=== PATIENT | male | born 1935 | race Caucasian/White ===

== ENCOUNTER 2021-11-16 07:18 | Emergency (ER) | payer OTHER, BC ==
[~2021-11-16] VITALS: Ht 177.8 cm; Wt 93.0 kg
--- NOTE | ~2021-11-16 | EMS ---
[facility] [address] [place] [address] EMS Patient Care Report Name: TRACI BOWER Room #: PRE M.R.#: [id number] Admission: Attend Phys: Discharge: Date of : 37 Report #: [id number] THIS REPORT FOR: //name// Report Transmitted: 11/16/2021 07:06 EMS Care Summary [facility] MED-ACT Incident [id number] @ 11/16/2021 06:42 Incident Location [address] [place] [address] Patient TRACI BOWER Male, 86 Years 1935 Patient Address [address] [place] [address] Patient History Hypertension (HTN),Pacemaker/AICD,Hyperlipidemia,Gastro-Esophageal Reflux Disease (GERD),Depression, Patient Allergies No known allergies, Patient Medications Citalopram, Eliquis, Prilosec, Propranolol, Atorvastatin, Chief Complaint syncope/weakness Disposition Transported No Lights/[place] Reason Falls Transported To [facility] Narrative Upon arrival pt was sitting on the stairs, presented w/o distress. Pt stated he had syncope and fall 2 days ago and he was worried about having a syncope [facility] [address] [place] [address] EMS Patient Care Report Name: TRACI BOWER Room #: PRE [facility].[place].#: [id number] Admission: Attend Phys: Discharge: Date of : 37 Report #: [id number] today so he called 911. Pt stated he was on blood thinners. Pt denied any injuries into the head, no neck or back pain. Pt stated he felt weakness (generalized weakness), negative on stroke scale. Pt stated he felt unsteady and shaking on his feet and that unusual. Pt walked into the stretcher w/o difficulty with assistance and then pt moved to the unit. In the unit, pt vitals were monitored and remained stable during transport. [facility] diverted M1144 to any other hospital because the pt was on blood thinners. Pt requested [facility]. At the hospital, pt moved to his assigned bed by sheet and then ptg care turned over ED nurse. Initial Vitals @07:02P: 72,R: 16,BP: 138/94,Pain: 0/10,SpO2: 97, @07:00P: 77,R: 15,SpO2: 97, @06:58P: 87,R: 18,BP: 152/121,Pain: 0/10,GCS: 14,Temp: 96.9F,Glucose: 141,SpO2: 97,Revised Trauma: 12, Impression Syncope / Fainting Procedures @07:00 12-Lead ECG Timeline 06:36,Call Received 06:36,Psap Call 06:42,Dispatched 06:44,En Route 06:49,On Scene 06:49,At Patient 06:58,BP: 152/121 M,PULSE: 87,RR: 18 R,SPO2: 97 Ox,ETCO2: ,B,PAIN: 0,GCS: 14, 07:00,12-Lead ECG, 07:00,BP: / M,PULSE: 77,RR: 15 R,SPO2: 97 Ox,ETCO2: ,BG: ,PAIN: ,GCS: , 07:02,Depart Scene 07:02,BP: 138/94 M,PULSE: 72,RR: 16 R,SPO2: 97 Ox,ETCO2: ,BG: ,PAIN: 0,GCS: , 07:12,At Destination 07:38,Call Closed Disclaimer v1.1 Copyright 2021 [employer] This EMS Care Summary contains data elements from the applicable legal record (which may be displayed differently). It is designed to provide pertinent information for the following purposes: continuity of care, clinical quality, and state data reporting. The complete legal record is available to ED staff [address] [address] EMS Patient Care Report Name: TRACI BOWER Room #: PRE M.R.#: [id number] Admission: Attend Phys: Discharge: Date of : 37 Report #: [id number] and administrators of the receiving hospital in [employer] Patient Tracker. All data is provided "as is."
[2021-11-16] MEDS ORDERED: ELIQUIS5 MG PO (07:24)
[2021-11-16] MEDS ORDERED: CELEXA 10 MG TA10 M1 PO (07:24)
[2021-11-16] MEDS ORDERED: PROPRANOLOL 20M20 M1 PO (07:25)
[2021-11-16] MEDS ORDERED: LIPITOR 40 MG T40 M1 PO (07:25)
--- NOTE | 2021-11-16 07:47 | EKG ---
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1935 Requested By: Orion Grayson Order Number: [id number] MD: Andrez Patterson Measurements Intervals [place] Rate: 71 P: 0 [place]: 31 QRS: -14 QRSD: 114 T: 157 QT: 403 QTc: 438 Interpretive Statements Ventricular-paced rhythm No further analysis attempted due to paced rhythm No previous ECG available for comparison Electronically Signed On 11-16-2021 7:47:36 TEST PILOT by Andrez Patterson [email or web address] <ELECTRONICALLY SIGNED> By: Andrez Patterson MD, [facility] 11/16/21 0747 0724 Andrez Patterson MD, FACC /EPI
[2021-11-16 07:59] LABS: BASOPHILS 0.7 % (0.0-2.0); EOSINOPHILS 1.9 % (0.0-3.0); HEMATOCRIT 40.9 % (42.0-52.0); HEMOGLOBIN 13.7 gm/dL (14.0-18.0); MCHC 33.5 g/dL (28.0-37.0); MCV 95.4 fL (80.0-100.0); MONOCYTES 13.7 % (1.0-8.0); PLATELET COUNT 236 thou/uL (150-400); POLYS 62.7 % (36.0-66.0); RBC 4.29 mil/uL (4.50-6.00); RDW 13.6 % (10.5-14.5); WBC 4.8 thou/uL (4.0-11.0)
[2021-11-16 08:13] LABS: CALCIUM 8.7 mg/dL (8.5-10.1); CREATININE 0.9 mg/dL (0.7-1.3); POTASSIUM 3.7 mmol/L (3.5-5.1)
[2021-11-16 09:15] VITALS: BP 140/82
== END 2021-11-16 09:16 | disposition home or self-care (01) ==
LOC: ER 07:18
PROVIDERS: Emergency Medicine
DX: R55 Syncope and collapse (principal); E78.00 Pure hypercholesterolemia, unspecified; Z90.49 Acquired absence of other specified parts of digestive tract; Z79.899 Other long term (current) drug therapy